=== PATIENT | male | born 1970 | race Caucasian/White ===

== ENCOUNTER 2016-07-19 13:02 | Observation (INO) ==
--- NOTE | 2016-07-19 13:08 | Emergency Department Note ---
Disposition Clinical Impression: Chest pain, Status post coronary artery stent placement, Elevated blood pressure reading Disposition: Admitted As Inpatient Condition: Good General Adult HPI - General Chief complaint: ED Chest Pain Stated complaint: CHEST PAIN Time Seen by Provider: 07/19/16 13:04 - Related Data Home Medications Medication Instructions Recorded Confirmed Alprazolam [Xanax 0.5 MG Tablet] 0.5 mg PO TID 07/19/16 07/19/16 Escitalopram [Lexapro] 10 mg PO DAILY 07/19/16 07/19/16 Previous Rx's Medication Instructions Recorded Aspirin Enteric Coated [Aspirin EC] 81 mg PO DAILY #30 tablet.dr 12/16/15 Atorvastatin Calcium [Lipitor] 80 mg PO HS #30 tab 12/16/15 Clopidogrel [Plavix] 75 mg PO DAILY #30 tablet 12/16/15 Losartan [Cozaar] 25 mg PO DAILY #30 tablet 12/16/15 Metoprolol XL (24 HR) Succ [Toprol 50 mg PO DAILY #30 tab.er.24h 12/16/15 Xl] Allergies Allergy/AdvReac Type Severity Reaction Status Date / Time lisinopril AdvReac Cough Verified 12/16/15 11:40 Past Medical History - Past Medical History Medical history: Reports: hypertension, kidney stones, other Surgical history: Reports: ureteral stent Psychiatric history: Reports: no psych history - Social History Smoking Status: Current every day smoker Smokeless Tobacco Status: No Alcohol use: Reports: none, rarely Drug use: Reports: none Course Vital Signs Temperature 98.0 F 07/19/16 13:06 Pulse Rate 78 07/19/16 13:06 Respiratory Rate 16 07/19/16 13:06 Blood Pressure 180/120 07/19/16 13:06 O2 Sat by Pulse Oximetry 99 07/19/16 13:06 Temperature 98.0 F 07/19/16 13:06 Pulse Rate 75 07/19/16 13:42 Respiratory Rate 15 07/19/16 13:42 Blood Pressure 140/97 07/19/16 13:42 O2 Sat by Pulse Oximetry 97 07/19/16 13:42 Oxygen Delivery Oxygen Delivery Room Air Medical Decision Making - Lab Data Result diagrams: 07/19/16 13:18 07/19/16 13:18 Lab Results 07/19/16 07/19/16 07/19/16 Range/Units 13:18 13:18 13:18 WBC 6.9 (4.3-11.1) K/mcL RBC 4.89 (4.19-5.50) M/mcL Hgb 14.2 (12.9-16.9) g/dL Hct 42.6 (37.5-50.1) % MCV 87.1 (83.0-100.0) fL MCH 29.0 (28.0-33.3) pg MCHC 33.3 (31.6-35.5) g/dL RDW 12.7 (11.5-14.5) % Plt Count 279 (140-400) K/mcL MPV 8.5 L (9.4-12.4) fL Immature Gran % 0.4 (0-4) % Seg Neutrophils % 55.3 % Lymphocytes % 32.2 % Monocytes % 8.8 % Eosinophils % 2.6 % Basophils % 0.7 % Neutrophils # 3.8 (1.6-8.9) K/mcL Lymphocytes # 2.2 (0.6-4.6) K/mcL Monocytes # 0.6 (0.0-1.3) K/mcL Eosinophils # 0.2 (0.0-0.6) K/mcL Basophils # 0.1 (0.0-0.2) K/mcL Sodium 140 (136-145) mEq/L Potassium 4.2 (3.5-4.5) mEq/L Chloride 109 (98-109) mEq/L Carbon Dioxide 23 (19-29) mEq/L BUN 14 (8-26) mg/dL Creatinine 1.26 H (0.72-1.25) mg/dL Est GFR ( Amer) > 60 (> 60) Est GFR (Non-Af Amer) > 60 (> 60) BUN/Creatinine Ratio 11 (6-26) Glucose 97 (70-99) mg/dL Calculated Osmolality 290 (280-300) Calcium 9.2 (8.6-10.8) mg/dL Troponin I 0.00 (0-0.03) ng/mL Attestation Statement - Attestation Attestation: I examined this patient and my medical decision-making was reviewed with the JANITORIAL ASSISTANT/PA/Advanced Practice Nurse/Resident Physician. I agree with the documented findings, disposition and treatment plan as described except to the extent set forth below. [id number] time provided Patient complains of chest discomfort. In December he suffered a myocardial infarction and had one coronary stent deployed. He states the pain is in a different location and is subjectively different than when he had an MRI. He appears in no acute distress on exam. Patient seen and evaluated in conjunction with resident physician Dr. Sullivan
[2016-07-19] MEDS ORDERED: Nitroglycerin 0.4 MG TAB.SUBL SL ONE (13:12)
[2016-07-19] MEDS ORDERED: Aspirin 81 MG TAB.CHEW PO ONE (13:12)
--- NOTE | 2016-07-19 13:15 | Emergency Department Note ---
Disposition Clinical Impression: Status post coronary artery stent placement, Elevated blood pressure reading Chest pain Qualifiers: Chest pain type: unspecified Qualified Code(s): R07.9 - Chest pain, unspecified Disposition: Admitted As Inpatient Condition: Good Chest Pain HPI - General Chief Complaint: ED Chest Pain Stated Complaint: CHEST PAIN Time Seen by Provider: 07/19/16 13:04 Source: patient, family Mode of arrival: wheelchair Limitations: no limitations Vital Signs Reviewed: Yes Nursing Notes Reviewed: Yes - History of Present Illness HPI Narrative: 45-year-old male history of hypertension and coronary artery disease status post 1 stent placed back in December 2015 presents for evaluation of chest pain. Notes it is nonexertional left-sided with radiation as left arm. Notes some nausea and diaphoresis. Slightly different pain presentation than his prior cardiac event. Patient states he has been taking his Plavix. No aspirin prior to arrival. Reports some shortness of breath. Severity scale (1-10): 7 - Related Data Home Medications Medication Instructions Recorded Confirmed Alprazolam [Xanax 0.5 MG Tablet] 0.5 mg PO TID 07/19/16 07/19/16 Escitalopram [Lexapro] 10 mg PO DAILY 07/19/16 07/19/16 Previous Rx's Medication Instructions Recorded Aspirin Enteric Coated [Aspirin EC] 81 mg PO DAILY #30 tablet.dr 12/16/15 Atorvastatin Calcium [Lipitor] 80 mg PO HS #30 tab 12/16/15 Clopidogrel [Plavix] 75 mg PO DAILY #30 tablet 12/16/15 Losartan [Cozaar] 25 mg PO DAILY #30 tablet 12/16/15 Metoprolol XL (24 HR) Succ [Toprol 50 mg PO DAILY #30 tab.er.24h 12/16/15 Xl] Allergies Allergy/AdvReac Type Severity Reaction Status Date / Time lisinopril AdvReac Cough Verified 12/16/15 11:40 All systems ED: reviewed and negative except as stated. Constitutional: Reports: as per HPI. Denies: fever Eyes: Reports: as per HPI ENT ED: Reports: as per HPI Cardiovascular: Reports: as per HPI, chest pain Respiratory: Reports: as per HPI, dyspnea Gastrointestinal: Reports: as per HPI, nausea. Denies: abdominal pain, vomiting Genitourinary: Reports: as per HPI Musculoskeletal: Reports: as per HPI Integumentary: Reports: as per HPI Neurological: Reports: as per HPI Psychiatric: Reports: as per HPI, anxiety Endocrine: Reports: as per HPI Hematological/Lymphatic: Reports: as per HPI Chest Pain PMH - Past Medical History Medical history: Reports: hypertension, kidney stones, other Surgical history: Reports: ureteral stent Psychiatric history: Reports: no psych history - Social History Smoking Status: Current every day smoker Alcohol use: Reports: none, rarely Drug use: Reports: none Physical Exam - General Limitations: no limitations General appearance: alert, in no apparent distress - Head Head exam: atraumatic, normocephalic, normal inspection - Eye Eye exam: Present: normal appearance, PERRL, EOMI - ENT ENT exam: normal exam, mucous membranes moist - Neck Neck exam: Present: normal inspection, trachea midline - Chest Chest inspection: Present: normal inspection, symmetric chest wall rise - Respiratory Respiratory exam: Present: normal lung sounds bilaterally. Absent: respiratory distress - Cardiovascular Cardiovascular exam: Present: regular rate, normal rhythm - Abdominal Exam Abdominal exam: Present: soft, Non-Tender - Extremities Exam Extremities exam: Present: normal inspection, full ROM. Absent: tenderness, pedal edema - Back Exam Back exam: Present: normal inspection, full ROM. Absent: tenderness - Neurological Exam Neurological exam: Present: alert - Psychiatric Psychiatric exam: Present: normal affect, normal mood Course Course Narrative: Patient seen and examined. Patient appears in mild discomfort. Patient has a concerning story with a heart history. Patient will get an EKG, cardiac evaluation. Likely admission. - Reevaluation(s) Reevaluation #1: Patient seen and examined. Patient noted pain relief following interventions. Awaiting lab work. Time: 13:31 Vital Signs Temperature 98.0 F 07/19/16 13:06 Pulse Rate 78 07/19/16 13:06 Respiratory Rate 16 07/19/16 13:06 Blood Pressure 180/120 07/19/16 13:06 O2 Sat by Pulse Oximetry 99 07/19/16 13:06 Temperature 98.0 F 07/19/16 13:06 Pulse Rate 75 07/19/16 13:42 Respiratory Rate 15 07/19/16 13:42 Blood Pressure 140/97 07/19/16 13:42 O2 Sat by Pulse Oximetry 97 07/19/16 13:42 Oxygen Delivery Oxygen Delivery Room Air Chest Pain - [facility] Narrative Medical decision making narrative: 45-year-old male for evaluation of chest pain. Patient does have a cardiac history status post stent back in December of last year. Patient's story was concerning for ACS chest pain nonexertional with radiation as left arm. Patient has been taking his Plavix and aspirin. Patient's pain resolved after one nitroglycerin in the emergency department. Patient's blood pressure also improved from initial triage evaluation. Patient's EKG is unremarkable. Patient's initial troponin is negative. Lab work also unremarkable besides a slightly elevated creatinine. Patient's resting comfortably in the emergency department. Patient will be admitted for further monitoring of chest pain. Patient's chest pain less likely result of any pulmonary embolism. Patient is PERC negative and is not hypoxic or dyspnic with his history more consistent with ACS chest pain. Patient had a nondiagnostic stress test back in December of last year. Patient will need further evaluation for his ACS. Patient is aware of plan of care and agrees. - Lab Data Lab results reviewed: Yes I reviewed the patient's lab results. Result diagrams: 07/19/16 13:18 07/19/16 13:18 Lab Results 07/19/16 07/19/16 07/19/16 Range/Units 13:18 13:18 13:18 WBC 6.9 (4.3-11.1) K/mcL RBC 4.89 (4.19-5.50) M/mcL Hgb 14.2 (12.9-16.9) g/dL Hct 42.6 (37.5-50.1) % MCV 87.1 (83.0-100.0) fL MCH 29.0 (28.0-33.3) pg MCHC 33.3 (31.6-35.5) g/dL RDW 12.7 (11.5-14.5) % Plt Count 279 (140-400) K/mcL MPV 8.5 L (9.4-12.4) fL Immature Gran % 0.4 (0-4) % Seg Neutrophils % 55.3 % Lymphocytes % 32.2 % Monocytes % 8.8 % Eosinophils % 2.6 % Basophils % 0.7 % Neutrophils # 3.8 (1.6-8.9) K/mcL Lymphocytes # 2.2 (0.6-4.6) K/mcL Monocytes # 0.6 (0.0-1.3) K/mcL Eosinophils # 0.2 (0.0-0.6) K/mcL Basophils # 0.1 (0.0-0.2) K/mcL Sodium 140 (136-145) mEq/L Potassium 4.2 (3.5-4.5) mEq/L Chloride 109 (98-109) mEq/L Carbon Dioxide 23 (19-29) mEq/L BUN 14 (8-26) mg/dL Creatinine 1.26 H (0.72-1.25) mg/dL Est GFR ( Amer) > 60 (> 60) Est GFR (Non-Af Amer) > 60 (> 60) BUN/Creatinine Ratio 11 (6-26) Glucose 97 (70-99) mg/dL Calculated Osmolality 290 (280-300) Calcium 9.2 (8.6-10.8) mg/dL Troponin I 0.00 (0-0.03) ng/mL - Radiology Data Radiology results reviewed: Yes I reviewed the patient's radiology results. Chest X-Ray 07/19/16 13:12 IMPRESSION: Stable portable study. D/ / Lisette Moreland Cha, MD / Lisette Moreland Cha, MD Interpreting Provider: Lisette Moreland Cha, MD - EKG Data EKG attestation: Yes I reviewed and interpreted this EKG. EKG shows normal: sinus rhythm Rate: normal Rhythm: NSR [place]/QRS: normal Interpretation: no acute changes, normal EKG Heart Score - Score History: Highly Suspicious EKG: Normal Age: 45-65 Risk Factors: 1-2 risk factors Troponin: Less than normal limit HEART Score Total: 4 S.B.A.R. - S.B.A.R. Situation: Demographics Background: Presenting Complaint, Relevant PMH, Meds, & Allergies Assessment: Vital Signs, Course and respsone to treatment, Patient/Family Expectation Recommendation: Barrier(s) to disposition, Recommendation based on pending studies, treatments, or consults S.B.A.RDeloris Report Given to: Dr. Jade MurphyADavid Repor Time: 14:03
[2016-07-19] MEDS ORDERED: Aspirin 81 MG TAB.CHEW ONE (13:22)
[2016-07-19 13:25] LABS: Basophils # 0.1 K/mcL (0.0-0.2); Basophils % 0.7 %; Eosinophils # 0.2 K/mcL (0.0-0.6); Eosinophils % 2.6 %; Hematocrit 42.6 % (37.5-50.1); Hemoglobin 14.2 g/dL (12.9-16.9); Immature Granulocytes % 0.4 % (0-4); Lymphocytes # 2.2 K/mcL (0.6-4.6); Lymphocytes % 32.2 %; Mean Corpuscular HGB Conc 33.3 g/dL (31.6-35.5); Mean Corpuscular Volume 87.1 fL (83.0-100.0); Mean Platelet Volume 8.5 fL (9.4-12.4); Monocytes # 0.6 K/mcL (0.0-1.3); Monocytes % 8.8 %; Neutrophils # 3.8 K/mcL (1.6-8.9); Platelet Count 279 K/mcL (140-400); Red Blood Count 4.89 M/mcL (4.19-5.50); Red Cell Distribution Width 12.7 % (11.5-14.5); Segmented Neutrophils % 55.3 %
[2016-07-19 13:36] LABS: BUN/Creatinine Ratio 11 (6-26); Blood Urea Nitrogen 14 mg/dL (8-26); Calcium 9.2 mg/dL (8.6-10.8); Carbon Dioxide 23 mEq/L (19-29); Chloride 109 mEq/L (98-109); Glucose 97 mg/dL (70-99); Osmolality,Calculated 290 (280-300); Potassium 4.2 mEq/L (3.5-4.5); Sodium 140 mEq/L (136-145); eGFR For African Americans > 60 (> 60); eGFR For Non-African Americans > 60 (> 60)
--- NOTE | 2016-07-19 14:18 | Internal Med History&Physical ---
Date of Encounter: 07/19/16 Time of Encounter: 14:17 Assessment and Plan (1) Chest pain Current visit: Yes Status: Acute typical chest pain with left sided pressure sensation radiating to his left arm relieved with nitro EKG and first trop is negative, will trend tropx3, monitor for chest pain, continuous cardiac monitoring, nitro prn for chest pain. Patient had a [facility] 12/14/15 with findings of 90% LAD obstruction with placement of a NOEMY. ECHO was done which revealed normal EF with mild KEMAL of MV, no LVOT observed. given significnat cardiac history and typical chest pain, he may need a stress test. consult cardio if stress test results concerning for ischemia. 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 (3) Hyperlipidemia Current visit: No Status: Acute Qualifiers: Hyperlipidemia type: mixed hyperlipidemia Qualified Code(s): E78.2 - Mixed hyperlipidemia (4) Hypertension Current visit: No Status: Chronic BP elevated at ED at 180/120s. however when he came to floors, was 130/80s. he did not get any meds at ED for BP. will cotninue home meds, continue to monitor Qualifiers: Hypertension type: essential hypertension Qualified Code(s): I10 - Essential (primary) hypertension (5) Tobacco use Current visit: No Status: Chronic (6) Status post coronary artery stent placement Current visit: Yes Status: Acute contiue DAPT. Patient had a [facility] 12/14/15 with findings of 90% LAD obstruction with placement of a NOEMY with Dr. Romano. Internal Medicine - H&P: HPI Chief complaint: chest pain Admitted From: Home Plans for Post Hospital Care: Home History of present illness: Mr. Aguilar is a 45 year old male with PMH of HTN, Obesity, Active smoker, WPW Syndrome s/p ablation in 2006 at [facility] presented to ED for chest pain. he says the chest pain started around 11 am in the morning, felt pressure like , radiating to his left arm which felt numb. he was given nitro at ED which he says helped ease the chest pain. he denies n/v/diaphoresis. Patient had a [facility] 12/14/15 with findings of 90% LAD obstruction with placement of a NOEMY. ECHO was done which revealed normal EF with mild KEMAL of MV, no LVOT observed. he has not followed with a secondary english teacher after the stent placement and had no chest pain or MAK since the stent placement. he reports that his mother recently and thus he started smoking again. Past Med Surg Social Fam HX - Past Medical History Medical history: hypertension, kidney stones, other Psychiatric history: no psych history - Past Surgical History Surgical History: ureteral stent - Social History Smoking Status: Current every day smoker Smokeless Tobacco Status: No Alcohol use: none, rarely Drug use: none - Family History Father Family Member Ethnicity: Non- Living Status: Still Living Hx Family Cardiac Disorders: No Hx Family Respiratory Disorders: No Hx Family Cancer: No Hx Family GI Disorders: No Hx Family Endocrine Disorder: Yes (Diabetes) Hx Family Neuromuscular Disorders: No Hx Family Neurologic Disorders: No Hx Family HEENT Disorders: No Hx Family Autoimmune Disorders: No Internal Medicine - H&P: Meds Aspirin Enteric Coated [Aspirin EC] 81 mg PO DAILY #30 tablet.dr 12/16/15 [Rx] Atorvastatin Calcium [Lipitor] 80 mg PO HS #30 tab 12/16/15 [Rx] Clopidogrel [Plavix] 75 mg PO DAILY #30 tablet 12/16/15 [Rx] Losartan [Cozaar] 25 mg PO DAILY #30 tablet 12/16/15 [Rx] Metoprolol XL (24 HR) Succ [Toprol Xl] 50 mg PO DAILY #30 tab.er.24h 12/16/15 [ Rx] Alprazolam [Xanax 0.5 MG Tablet] 0.5 mg PO TID PRN 07/19/16 [History] Escitalopram [Lexapro] 10 mg PO DAILY 07/19/16 [History] Allergies lisinopril Adverse Reaction (Verified 12/16/15 11:40) Cough All Systems PM: A 10-system review of systems was performed and is negative for pertinent findings except as documented above in the HPI. - Constitutional Vitals: Temp Pulse Resp BP Pulse Ox 98.0 F 75 15 140/97 97 07/19/16 13:06 07/19/16 13:42 07/19/16 13:42 07/19/16 13:42 04/14/17 13:42 General appearance: Present: A&O X 3, no acute distress Exam: neck- supple chest- b/l clear, marj dded sounds CVS-s1 and s2, no m/r/g abd-soft, non tender, bs are present ext- no edema Internal Med - H&P Results - Labs CBC & Chem 7: 07/19/16 13:18 07/19/16 13:18
[2016-07-19] MEDS ORDERED: Naloxone 0.4 MG/ML INJ IVP PRN (15:06)
[2016-07-19] MEDS ORDERED: ALPRAZolam 0.5 MG TABLET PO PRN (15:08)
[2016-07-19] MEDS: *HR* Enoxaparin 40 MG/0.4 ML SYRINGE SQ SCH (16:44)
--- NOTE | 2016-07-19 20:56 | Electrocardiograph Report ---
[address] [address] Test Date: 2016-07-19 Pat Name: Jluis Aguilar Department: 102 Room: 3B46 Gender: M Vice Chancellor: [place] : 1970 Requested By: Willie Sullivan Order Number: [id number] Reading MD: Misael Levine MD Measurements Intervals [place] Rate: 76 P: 51 TX: 173 QRS: -5 QRSD: 78 T: 30 QT: 356 QTc: 386 Interpretive Statements SINUS RHYTHM Electronically Signed On 07-19-2016 20:54:50 EDT by Misael Levine MD
[2016-07-20 00:27] LABS: Basophils # 0.1 K/mcL (0.0-0.2); Basophils % 0.7 %; Eosinophils # 0.3 K/mcL (0.0-0.6); Eosinophils % 3.3 %; Hematocrit 40.7 % (37.5-50.1); Hemoglobin 13.6 g/dL (12.9-16.9); Immature Granulocytes % 0.7 % (0-4); Immature Platelets 1.5 % (1.1-6.1); Lymphocytes # 3.7 K/mcL (0.6-4.6); Lymphocytes % 47.9 %; Mean Corpuscular HGB Conc 33.4 g/dL (31.6-35.5); Mean Corpuscular Hemoglobin 29.6 pg (28.0-33.3); Mean Corpuscular Volume 88.7 fL (83.0-100.0); Mean Platelet Volume 8.9 fL (9.4-12.4); Monocytes # 0.7 K/mcL (0.0-1.3); Monocytes % 8.6 %; Platelet Count 297 K/mcL (140-400); Red Blood Count 4.59 M/mcL (4.19-5.50); Red Cell Distribution Width 12.8 % (11.5-14.5); Segmented Neutrophils % 38.8 %
[2016-07-20 00:39] LABS: BUN/Creatinine Ratio 11 (6-26); Blood Urea Nitrogen 17 mg/dL (8-26); Calcium 8.4 mg/dL (8.6-10.8); Carbon Dioxide 28 mEq/L (19-29); Chloride 108 mEq/L (98-109); Glucose 95 mg/dL (70-99); Osmolality,Calculated 297 (280-300); Potassium 3.8 mEq/L (3.5-4.5); Sodium 143 mEq/L (136-145); eGFR For African Americans > 60 (> 60); eGFR For Non-African Americans 51 (> 60)
[2016-07-20] MEDS: *HR* Enoxaparin 40 MG/0.4 ML SYRINGE SQ SCH (05:04)
[2016-07-20] MEDS ORDERED: Regadenoson 0.4 MG/5 ML SYRINGE IVP ONE (07:09)
[2016-07-20] MEDS ORDERED: Metoprolol XL (24 HR) Succ 50 MG TAB.ER.24H PO SCH (09:00)
[2016-07-20] MEDS ORDERED: Aspirin Enteric Coated 81 MG Tablet PO SCH (09:00)
[2016-07-20 11:06] VITALS: BP 145/93
--- NOTE | 2016-07-20 11:32 | Nuclear Medicine Stress Report ---
Regadenoson Nuclear Stress Name: Jluis Aguilar Date of Study: 07/20/2016 Date: 1970 Ht: 72.0 in Medical Record#: [id number] Age: 45 Wt: 264.0 lb Gender: Male Order #: [id number] Location: [facility] Room: [facility] Supervising Provider: Daniel Hart CNP Reading Physician: Haroldo Gupta MD, [facility] Ordering Physician: Tata Evans CNP Primary Care Physician: Diomedes Best DO Stress Technologist: Mario Pepper, RADIAL SAW OPERATOR, CCT Delinquent Account Clerk: Meir Gonsalez Indications: Chest Pain Impression: Non-specific ST-T wave changes were seen with regadenoson. No ECG changes diagnostic of ischemia. Gated LVEF = 68%. Perfusion imaging was negative for ischemia or infarct. History: Hypertension Hypercholesteremia History of Smoking Prior PCI Stress Test Summary: Stress Test Type: Pharmacologic Regadenoson 0.4mg/5ml given IV Baseline Information: Initial Heart Rate: 58 Blood Pressure: 136/90 Stress Information: Test Terminated Due to (primary): Completed Protocol Maximum Blood Pressure: 136/80 Maximum Heart Rate: 100 Percent Maximum Heart Rate Achieved: 57 Double Product: 13,600 Symptoms: Shortness of breath, Nausea Nuclear Summary: SPECT myocardial perfusion imaging using Tc99m Sestamibi given intravenously was performed at rest and following cardiac stress testing. The resting images were obtained following initial dose of 11.0 mCi. Following stress an additional dose of 33.1 mCi was given at peak exercise or 30 seconds post regadenoson infusion. Findings: Stress Note * Resting ECG demonstrated sinus bradycardia. * No baseline arrhythmias were noted. * Patient had no chest pain during stress. * No arrhythmias were noted during stress. * Non-specific ST-T wave changes were seen with regadenoson. No ECG changes diagnostic of ischemia. Hemodynamic responses * Normal hemodynamic responses to pharmacologic stress. Study Quality * Study quality is average. Gated EF % * Gated LVEF = 68%. Left Ventricle * The left ventricle is not dilated. * Normal Segmental Perfusion in rest. * Normal segmental perfusion in stress. * Inferior artifact noted. TID * No evidence of transient ischemic dilatation. Updated by Haroldo Gupta MD, [facility] on 07/20/2016 11:26:48 AM electronically signed on 07/20/2016 11:27:10 AM with status of Final
--- NOTE | 2016-07-20 13:02 | Discharge Summary ---
Date of Encounter: 07/20/16 Time of Encounter: 10:00 - Discharge Diagnosis (1) Chest pain Priority: Primary Status: Acute Comments: Patient reports sudden onset chest pain yesterday morning at work while he was walking to a job site. He says the pain began radiating down both arms clear to his fingers. He was profusely diaphoretic, dizzy, and short of breath. He says this is different than the symptoms he had with his ND. He says his shoulders and neck were extremely stiff. The pain was relieved with nitroglycerin in the emergency department. His troponins were negative 3. Chest x-ray was negative for any acute cardiopulmonary processes. Patient had a left heart catheter done in December 2015 the discover an 80% LAD obstruction with placement of a TENS at that time. Echo was done which revealed normal EF with mild S a.m. of MV, no LVOT observed. Stress test today showed no arrhythmias, nonspecific ST changes with the medication, no EKG changes diagnostic of ischemia. Gated EF is 68%. Left ventricle is not dilated and no evidence of transient ischemic dilatation. Patient will continue his statin Plavix and beta gonsalo at home. 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 He has had no episodes since. (3) Hyperlipidemia Priority: Secondary Status: Acute Comments: Chronic. Continue statin. Qualifiers: Hyperlipidemia type: mixed hyperlipidemia Qualified Code(s): E78.2 - Mixed hyperlipidemia (4) Hypertension Priority: Secondary Status: Chronic Comments: Chronic. Continue home medications. Qualifiers: Hypertension type: essential hypertension Qualified Code(s): I10 - Essential (primary) hypertension (5) Tobacco use Priority: Secondary Status: Chronic Comments: Attempt discuss smoking cessation with patient. He stopped me midsentence and told me that he is done smoking and said "I do not need patches gone this medications. I am done" (6) Status post coronary artery stent placement Priority: Secondary Status: Chronic Comments: Patient had left heart catheter done in December,. It revealed 90% LAD obstruction and a NOEMY was placed. He is also on Plavix. - Discharge Medications Home Medications: Aspirin Enteric Coated [Aspirin EC] 81 mg PO DAILY #30 tablet. 12/16/15 [Rx] Atorvastatin Calcium [Lipitor] 80 mg PO HS #30 tab 12/16/15 [Rx] Clopidogrel [Plavix] 75 mg PO DAILY #30 tablet 12/16/15 [Rx] Losartan [Cozaar] 25 mg PO DAILY #30 tablet 12/16/15 [Rx] Metoprolol XL (24 HR) Succ [Toprol Xl] 50 mg PO DAILY #30 tab.er.24h 12/16/15 [ Rx] Alprazolam [Xanax 0.5 MG Tablet] 0.5 mg PO TID PRN 07/19/16 [History] Escitalopram [Lexapro] 10 mg PO DAILY 07/19/16 [History] Allergies/Adverse Reactions: Allergies lisinopril Adverse Reaction (Verified 12/16/15 11:40) Cough Procedures/tests Complete & Pending: Procedures Performed prior 72 hours Category Date Time Status NM consuelo perf SPECT multi [NM] Routine Exams 07/19/16 15:10 Taken SP pharm nuclear stress Routine Y 07/19/16 15:09 Completed Date of admission: 07/19/16 14:11 Primary care physician: Diomedes Best DO Discharging clinician: Tata Evans Anticipated date of discharge: 07/20/16 - Patient Status Disposition: Home, Self-Care Condition: Good Functional capacity at discharge: independent ambulation Overall status at discharge: patient is back to baseline - Discharge Instructions Follow Up With: Diomedes Best DO [Primary Care Provider] - Additional Instructions: Continue your home medications. Follow up with your PCP in the next week for a follow up. Return to the ED for any problems, concerns, or worsening condition - Diet and Activity Activity: resume usual activities as tolerated Diet: advance to your usual diet Hospital course: Mr. Aguilar is a 45 year old male with a history of prior ND, stent placement, hyperlipidemia, hypertension, and ablation for WPW. Patient began having chest pain yesterday at work while he was walking to a job site. He said after walking back to his work truck, the pain was radiating down his arms into his fingers. He reported diaphoresis, dizziness, and shortness of breath. He also ports shoulders and neck stiffness, all the symptoms were different than the symptoms he had with his ND. The pain was relieved with nitroglycerin in the emergency department. The patient had a stress test this morning that showed non-specific ST changes were seen when the medication was given. No EKG changes diagnostic of ischemia. Gated LVEF 68%. Left ventricle is not dilated, normal segmental perfusion in rest and stress. No evidence of transient ischemic dilatation. Patient reports hand swelling today when I assessed him. I walked over to him and pulled his wedding band off his left hand easily. He said maybe they are just stiff. Patient is aware of his renal insufficiency and has been treated for it before. His denies any knowledge of this diagnosis. He says he will continue to drink fluids today to flush contrast from his kidneys. He will follow up with his primary care physician, he does not see nephrology. He does have kidney stones currently and is under the care of urology. He is stable for discharge. - Time Spent with Patient Total time spent providing and/or coordinating discharge services: - Constitutional Vitals: Temp Pulse Resp BP Pulse Ox 98.0 F 69 16 145/93 93 07/20/16 11:06 07/20/16 11:06 07/20/16 11:06 07/20/16 11:06 07/20/16 11:06 General appearance: Present: A&O X 3, no acute distress, answers questions appropriately - Head Head exam: Present: normal inspection - Eye Eye exam: Present: normal appearance - ENT ENT exam: Present: mucous membranes moist, normal exam - Neck Neck exam general surgery: Present: normal inspection. Absent: lymphadenopathy , tenderness - Respiratory Respiratory exam: Present: CTAB. Absent: respiratory distress, rhonchi, wheezes - Cardiovascular Cardiovascular exam: Present: RRR, +S1, +S2. Absent: diastolic murmur, systolic murmur - GI/Abdominal GI/Abdominal exam: Present: normal bowel sounds. Absent: hepatomegaly, splenomegaly, tenderness - Extremities Exam Extremities exam: Present: warm, radial pulses palpable and symetrical. Absent : pedal edema, tenderness
== END 2016-07-20 13:37 | disposition home or self-care (01) ==
LOC: EMEROO 13:02 → 3BNU 13:02
PROVIDERS: ADMIT Internal Medicine Endocrinology, Diabetes & Metabolism; ATTEND Registered Nurse

== ENCOUNTER 2019-04-16 13:42 | Observation (INO) ==
[2019-04-16] MEDS ORDERED: Aspirin 81 MG TAB.CHEW PO ONE (13:49)
[2019-04-16] MEDS ORDERED: Nitroglycerin 0.4 MG TAB.SUBL SL PRN (13:49)
[2019-04-16] MEDS ORDERED: *HR* LORazepam 2 MG/ML VIAL IVP ONE (14:07)
[2019-04-16 14:44] LABS: Basophils # 0.1 K/mcL (0.0-0.2); Eosinophils # 0.1 K/mcL (0.0-0.6); Eosinophils % 1.8 %; Hematocrit 45.5 % (37.5-50.1); Hemoglobin 15.3 g/dL (12.9-16.9); Immature Granulocytes % 0.8 % (0-4); Lymphocytes # 2.6 K/mcL (0.6-4.6); Mean Corpuscular HGB Conc 33.6 g/dL (31.6-35.5); Mean Corpuscular Hemoglobin 29.9 pg (28.0-33.3); Mean Corpuscular Volume 88.9 fL (83.0-100.0); Monocytes # 0.5 K/mcL (0.0-1.3); Neutrophils # 3.9 K/mcL (1.6-8.9); Platelet Count 309 K/mcL (140-400); Red Blood Count 5.12 M/mcL (4.19-5.50); Red Cell Distribution Width 12.7 % (11.5-14.5); Segmented Neutrophils % 53.4 %; White Blood Count 7.3 K/mcL (4.3-11.1)
[2019-04-16 14:52] LABS: INR 0.9; Prothrombin Time 10.3 Seconds (9.4-12.1)
[2019-04-16 14:55] LABS: Activated Partial Thrombo Time 31.8 Seconds (26.0-36.0)
[2019-04-16 15:12] LABS: BUN/Creatinine Ratio 20 (6-26); Blood Urea Nitrogen 15 mg/dL (6-20); Calcium 6.5 mg/dL (8.6-10.3); Carbon Dioxide 18 mEq/L (23-29); Chloride 114 mEq/L (98-107); Glucose 70 mg/dL (70-105); Osmolality,Calculated 295 (280-300); Potassium 2.9 mEq/L (3.5-5.1); Sodium 143 mEq/L (136-145); Troponin I < 0.03 ng/mL (< 0.04); eGFR For African Americans > 60 (> 60); eGFR For Non-African Americans > 60 (> 60)
[2019-04-16] MEDS ORDERED: Potassium Effervescent 25 MEQ TABLET.EFF PO ONE (15:14)
[2019-04-16] MEDS ORDERED: Acetaminophen 325 MG TABLET PO PRN (15:34)
[2019-04-16] MEDS ORDERED: Ondansetron 4 MG/2 ML VIAL IVP PRN (15:34)
[2019-04-16] MEDS ORDERED: clonazePAM 0.5 MG TABLET PO PRN (15:36)
[2019-04-16] MEDS ORDERED: Nicotine 14 MG PATCH.TD24 TD PRN (15:38)
[2019-04-16] MEDS ORDERED: Nicotine 2 MG GUM BC PRN (15:38)
[2019-04-16 16:02] LABS: Alanine Aminotransferase 17 Units/L (7-52); Albumin/Globulin Ratio 1.9 (1.1-2.2); Alkaline Phosphatase 35 Units/L (34-104); Aspartate Amino Transferase 12 Units/L (13-39); Bilirubin,Direct 0.1 mg/dL (0.0-0.2); Bilirubin,Indirect 0.2 mg/dL (0.0-1.0); Bilirubin,Total 0.3 mg/dL (0.3-1.0); Globulin 1.6 g/dL (2.4-3.5); Magnesium 1.3 mg/dL (1.6-2.6); Phosphorous 2.6 mg/dL (2.7-4.5); Total Protein 4.6 g/dL (6.4-8.9)
[2019-04-16 16:29] LABS: Bilirubin,Urine Negative (Negative); Blood,Urine Negative (Negative); Clarity,Urine Clear (Clear); Color,Urine Yellow (Yellow); Glucose,Urine (UA) Normal (Normal); Ketones,Urine Negative (Negative); Leukocyte Esterase,Urine Negative (Negative); Nitrite,Urine Negative (Negative); Protein,Urine Negative (Neg-Trace); Specific Gravity,Urine 1.024 (1.010-1.025); Urobilinogen,Urine Normal (Normal)
[2019-04-16 16:58] LABS: Chloride,Urine < 15 mEq/L; Creatinine,Urine < 1 mg/dL; Potassium,Urine < 2.0 mEq/L; Sodium, Urine < 10.0 mEq/L
[2019-04-16] MEDS: carvediloL 6.25 MG TABLET PO SCH (18:18)
[2019-04-16] MEDS: Calcium Gluconate 1gm/50mL 1 GM/50 ML BAG IVPB SCH ×4 (19:56→23:59)
[2019-04-17 07:02] LABS: Hematocrit 45.4 % (37.5-50.1); Hemoglobin 14.9 g/dL (12.9-16.9); Mean Corpuscular HGB Conc 32.8 g/dL (31.6-35.5); Mean Corpuscular Volume 91.5 fL (83.0-100.0); Platelet Count 288 K/mcL (140-400); Red Blood Count 4.96 M/mcL (4.19-5.50); Red Cell Distribution Width 12.9 % (11.5-14.5); White Blood Count 7.4 K/mcL (4.3-11.1)
[2019-04-17 07:28] LABS: BUN/Creatinine Ratio 16 (6-26); Blood Urea Nitrogen 17 mg/dL (6-20); Carbon Dioxide 23 mEq/L (23-29); Chloride 107 mEq/L (98-107); Glucose 112 mg/dL (70-105); Osmolality,Calculated 290 (280-300); Phosphorous 4.4 mg/dL (2.7-4.5); Potassium 4.3 mEq/L (3.5-5.1); Sodium 139 mEq/L (136-145); Troponin I < 0.03 ng/mL (< 0.04); eGFR For African Americans > 60 (> 60); eGFR For Non-African Americans > 60 (> 60)
[2019-04-17] MEDS ORDERED: Regadenoson 0.4 MG/5 ML SYRINGE IVP ONE ×2 (08:25→08:44)
[2019-04-17] MEDS: carvediloL 6.25 MG TABLET PO SCH (11:04)
[2019-04-17 11:25] VITALS: BP 126/88
== END 2019-04-17 14:52 | disposition home or self-care (01) ==
LOC: EMEROOARM 13:42 → 3BNU 13:42 → SUATTDRO 17:20 → 3BNU 18:32
PROVIDERS: ADMIT Internal Medicine; ATTEND Internal Medicine

== ENCOUNTER 2020-07-10 21:33 | Observation (INO) ==
[2020-07-10] MEDS ORDERED: Aspirin 81 MG TAB.CHEW PO ONE (21:57)
[2020-07-10 22:30] LABS: Basophils # 0.1 K/mcL (0.0-0.2); Eosinophils # 0.3 K/mcL (0.0-0.6); Hematocrit 45.5 % (37.5-50.1); Hemoglobin 14.6 g/dL (12.9-16.9); Immature Granulocytes % 0.6 % (0-4); Lymphocytes # 2.9 K/mcL (0.6-4.6); Lymphocytes % 34.7 %; Mean Corpuscular HGB Conc 32.1 g/dL (31.6-35.5); Mean Corpuscular Hemoglobin 28.9 pg (28.0-33.3); Mean Corpuscular Volume 89.9 fL (83.0-100.0); Mean Platelet Volume 8.8 fL (9.4-12.4); Monocytes # 0.7 K/mcL (0.0-1.3); Monocytes % 7.8 %; Neutrophils # 4.4 K/mcL (1.6-8.9); Platelet Count 310 K/mcL (140-400); Red Blood Count 5.06 M/mcL (4.19-5.50); Red Cell Distribution Width 13.5 % (11.5-14.5); Segmented Neutrophils % 52.9 %; White Blood Count 8.3 K/mcL (4.3-11.1)
[2020-07-10 22:52] LABS: BUN/Creatinine Ratio 17 (6-26); Blood Urea Nitrogen 22 mg/dL (6-20); Calcium 9.1 mg/dL (8.6-10.3); Carbon Dioxide 23 mEq/L (23-29); Chloride 107 mEq/L (98-107); Glucose 121 mg/dL (70-105); Osmolality,Calculated 295 (280-300); Potassium 3.6 mEq/L (3.5-5.1); Sodium 140 mEq/L (136-145); eGFR For African Americans > 60 (> 60); eGFR For Non-African Americans > 60 (> 60)
[2020-07-10 22:53] LABS: Troponin I < 0.03 ng/mL (< 0.04)
[2020-07-11] MEDS ORDERED: Nitroglycerin 0.4 MG TAB.SUBL SL PRN (01:01)
[2020-07-11] MEDS ORDERED: Naloxone 0.4 MG/ML INJ IVP PRN (01:07)
[2020-07-11] MEDS ORDERED: Perflutren Lipid Microsphere 1.3 ML in 0.9 % Sodium Chloride 8.7 ML IVP PRN (01:07)
[2020-07-11] MEDS ORDERED: Melatonin 3 MG TABLET PO PRN (01:07)
[2020-07-11] MEDS ORDERED: Ondansetron 4 MG/2 ML VIAL IVP PRN (01:07)
[2020-07-11] MEDS ORDERED: Acetaminophen 325 MG TABLET PO PRN (01:07)
[2020-07-11] MEDS ORDERED: clonazePAM 0.5 MG TABLET PO PRN (05:38)
[2020-07-11] MEDS ORDERED: Regadenoson 0.4 MG/5 ML SYRINGE IVP ONE (06:05)
[2020-07-11 08:28] LABS: Chol/HDL Ratio 7.4 (0-4.9); Cholesterol 170 mg/dL (< 200); HDL Cholesterol 23 mg/dL (40-59); LDL Cholesterol,Calculated 109 mg/dL (< 100); Triglycerides 189 mg/dL (< 150); Troponin I < 0.03 ng/mL (< 0.04)
[2020-07-11 12:13] LABS: Hematocrit 44.6 % (37.5-50.1); Hemoglobin 14.8 g/dL (12.9-16.9); Mean Corpuscular HGB Conc 33.2 g/dL (31.6-35.5); Mean Corpuscular Hemoglobin 29.8 pg (28.0-33.3); Mean Corpuscular Volume 89.9 fL (83.0-100.0); Mean Platelet Volume 8.7 fL (9.4-12.4); Platelet Count 276 K/mcL (140-400); Red Blood Count 4.96 M/mcL (4.19-5.50); Red Cell Distribution Width 13.4 % (11.5-14.5); White Blood Count 5.8 K/mcL (4.3-11.1)
[2020-07-11 12:22] LABS: BUN/Creatinine Ratio 17 (6-26); Blood Urea Nitrogen 18 mg/dL (6-20); Calcium 8.7 mg/dL (8.6-10.3); Carbon Dioxide 24 mEq/L (23-29); Chloride 109 mEq/L (98-107); Glucose 102 mg/dL (70-105); Magnesium 2.1 mg/dL (1.6-2.6); Osmolality,Calculated 290 (280-300); Phosphorous 3.6 mg/dL (2.7-4.5); Sodium 139 mEq/L (136-145); eGFR For African Americans > 60 (> 60); eGFR For Non-African Americans > 60 (> 60)
[2020-07-11 14:22] LABS: Bilirubin,Urine Negative (Negative); Blood,Urine Negative (Negative); Clarity,Urine Clear (Clear); Color,Urine Light-Yellow (Yellow); Glucose,Urine (UA) Normal (Normal); Ketones,Urine Negative (Negative); Leukocyte Esterase,Urine Negative (Negative); Nitrite,Urine Negative (Negative); PH,Urine 5.5 pH Units (5.0-8.0); Protein,Urine Negative (Neg-Trace); Specific Gravity,Urine 1.027 (1.010-1.025); Urobilinogen,Urine Normal (Normal)
[2020-07-12 02:18] LABS: Hemoglobin 14.5 g/dL (12.9-16.9); Mean Corpuscular Hemoglobin 29.3 pg (28.0-33.3); Mean Corpuscular Volume 88.9 fL (83.0-100.0); Mean Platelet Volume 8.9 fL (9.4-12.4); Platelet Count 274 K/mcL (140-400); Red Blood Count 4.95 M/mcL (4.19-5.50); Red Cell Distribution Width 13.3 % (11.5-14.5); White Blood Count 7.5 K/mcL (4.3-11.1)
[2020-07-12 02:34] LABS: BUN/Creatinine Ratio 20 (6-26); Blood Urea Nitrogen 19 mg/dL (6-20); Calcium 8.8 mg/dL (8.6-10.3); Carbon Dioxide 22 mEq/L (23-29); Chloride 107 mEq/L (98-107); Glucose 94 mg/dL (70-105); Osmolality,Calculated 288 (280-300); Phosphorous 4.2 mg/dL (2.7-4.5); Potassium 3.9 mEq/L (3.5-5.1); Sodium 138 mEq/L (136-145); eGFR For African Americans > 60 (> 60); eGFR For Non-African Americans > 60 (> 60)
[2020-07-12 11:39] VITALS: BP 143/88
== END 2020-07-12 11:50 | disposition home or self-care (01) ==
LOC: CDU 21:33 → EMEROOARM 21:33 → SUATTDRO 07-11 01:26 → CDU 07-11 01:38 → 3BNU 07-11 16:21
PROVIDERS: ADMIT Family Medicine; ATTEND Nurse Practitioner

== ENCOUNTER 2021-10-19 16:40 | Observation (INO) ==
[2021-10-19 17:30] LABS: Basophils # 0.1 K/mcL (0.0-0.2); Basophils % 0.9 %; Eosinophils # 0.2 K/mcL (0.0-0.6); Eosinophils % 1.8 %; Hematocrit 48.3 % (37.5-50.1); Hemoglobin 16.2 g/dL (12.9-16.9); Immature Granulocytes % 0.5 % (0-4); Lymphocytes # 2.4 K/mcL (0.6-4.6); Lymphocytes % 29.8 %; Mean Corpuscular HGB Conc 33.5 g/dL (31.6-35.5); Mean Corpuscular Hemoglobin 29.6 pg (28.0-33.3); Mean Corpuscular Volume 88.1 fL (83.0-100.0); Mean Platelet Volume 9.3 fL (9.4-12.4); Monocytes # 0.5 K/mcL (0.0-1.3); Monocytes % 5.7 %; Platelet Count 328 K/mcL (140-400); Red Blood Count 5.48 M/mcL (4.19-5.50); Red Cell Distribution Width 13.2 % (11.5-14.5); Segmented Neutrophils % 61.3 %; White Blood Count 8.2 K/mcL (4.3-11.1)
[2021-10-19 17:37] LABS: INR 0.9; Prothrombin Time 10.2 Seconds (9.4-12.1)
[2021-10-19 17:39] LABS: Activated Partial Thrombo Time 34.7 Seconds (26.0-36.0)
[2021-10-19 17:50] LABS: BUN/Creatinine Ratio 10 (6-26); Blood Urea Nitrogen 11 mg/dL (6-20); Calcium 8.7 mg/dL (8.6-10.3); Carbon Dioxide 27 mEq/L (23-29); Chloride 105 mEq/L (98-107); Glucose 107 mg/dL (70-105); Osmolality,Calculated 290 (280-300); Potassium 3.8 mEq/L (3.5-5.1); Sodium 140 mEq/L (136-145); Troponin I < 0.03 ng/mL (< 0.04); eGFR For African Americans > 60 (> 60); eGFR For Non-African Americans > 60 (> 60)
[2021-10-19] MEDS: Nitroglycerin 0.4 MG TAB.SUBL SL SCH ×2 (17:52→19:26)
[2021-10-19] MEDS ORDERED: clonazePAM 1 MG TABLET PO PRN (19:31)
[2021-10-19] MEDS ORDERED: Perflutren Lipid Microsphere 1.3 ML in 0.9 % Sodium Chloride 8.7 ML IVP PRN (21:05)
[2021-10-19] MEDS ORDERED: Nitroglycerin 0.4 MG TAB.SUBL SL PRN (21:08)
[2021-10-19] MEDS ORDERED: Morphine Sulfate 2 MG/ML SYRINGE IVP PRN (21:08)
[2021-10-19] MEDS ORDERED: Naloxone 0.4 MG/ML INJ IVP PRN (21:35)
[2021-10-19] MEDS: Famotidine 20 MG TABLET PO SCH (21:37)
[2021-10-20] MEDS: *HR* Heparin 5,000 UNIT/ML VIAL SQ SCH ×3 (05:24→21:34)
[2021-10-20 05:28] LABS: Hematocrit 46.9 % (37.5-50.1); Hemoglobin 15.5 g/dL (12.9-16.9); Mean Corpuscular Hemoglobin 29.5 pg (28.0-33.3); Mean Corpuscular Volume 89.3 fL (83.0-100.0); Mean Platelet Volume 9.3 fL (9.4-12.4); Platelet Count 310 K/mcL (140-400); Red Blood Count 5.25 M/mcL (4.19-5.50); Red Cell Distribution Width 13.1 % (11.5-14.5); White Blood Count 8.1 K/mcL (4.3-11.1)
[2021-10-20 06:18] LABS: BUN/Creatinine Ratio 11 (6-26); Blood Urea Nitrogen 13 mg/dL (6-20); Calcium 8.4 mg/dL (8.6-10.3); Carbon Dioxide 26 mEq/L (23-29); Chloride 106 mEq/L (98-107); Chol/HDL Ratio 4.1 (0-4.9); Cholesterol 132 mg/dL (< 200); Glucose 79 mg/dL (70-105); HDL Cholesterol 32 mg/dL (40-59); LDL Cholesterol,Calculated 51 mg/dL (< 100); Osmolality,Calculated 289 (280-300); Potassium 4.2 mEq/L (3.5-5.1); Sodium 140 mEq/L (136-145); Triglycerides 246 mg/dL (< 150); eGFR For African Americans > 60 (> 60); eGFR For Non-African Americans > 60 (> 60)
[2021-10-20] MEDS ORDERED: Regadenoson 0.4 MG/5 ML SYRINGE IVP ONE (07:20)
[2021-10-20 08:14] LABS: Bilirubin,Urine Negative (Negative); Blood,Urine Negative (Negative); Clarity,Urine Clear (Clear); Color,Urine Light-Yellow (Yellow); Glucose,Urine (UA) Normal (Normal); Ketones,Urine Negative (Negative); Leukocyte Esterase,Urine Negative (Negative); Nitrite,Urine Negative (Negative); PH,Urine 6.5 pH Units (5.0-8.0); Protein,Urine 70 mg/dL (Neg-Trace); Specific Gravity,Urine 1.028 (1.010-1.025); Urobilinogen,Urine Normal (Normal)
[2021-10-20 08:28] LABS: Sperm,Urine Present per hpf (None Seen)
[2021-10-20 08:29] LABS: Bacteria,Urine Few per hpf (None-Few); Squamous Epithelial Cell,Urine Few per hpf (None-Few); WBC,Urine 0-3 per hpf (0-3)
[2021-10-20] MEDS: Aspirin Enteric Coated 81 MG Tablet PO SCH (11:22)
[2021-10-20] MEDS: Gabapentin 400 MG CAPSULE PO PRN ×2 (11:26→21:33)
[2021-10-20] MEDS: Famotidine 20 MG TABLET PO SCH ×2 (11:39→15:23)
[2021-10-20] MEDS ORDERED: NIFEdipine Immed Rel 10 MG CAPSULE PO ONE (20:11)
[2021-10-20] MEDS: carvediloL 6.25 MG TABLET PO SCH (21:20)
[2021-10-20] MEDS: Acetaminophen 325 MG TABLET PO PRN (21:28)
[2021-10-21] MEDS: *HR* Heparin 5,000 UNIT/ML VIAL SQ SCH ×3 (05:44→21:33)
[2021-10-21] MEDS: Aspirin Enteric Coated 81 MG Tablet PO SCH (08:14)
[2021-10-21] MEDS: carvediloL 6.25 MG TABLET PO SCH (08:15)
[2021-10-21] MEDS: Famotidine 20 MG TABLET PO SCH ×2 (08:15→15:49)
[2021-10-21] MEDS: Acetaminophen 325 MG TABLET PO PRN (08:21)
[2021-10-21 09:51] LABS: Hematocrit 46.7 % (37.5-50.1); Hemoglobin 15.5 g/dL (12.9-16.9); Mean Corpuscular HGB Conc 33.2 g/dL (31.6-35.5); Mean Corpuscular Hemoglobin 29.6 pg (28.0-33.3); Mean Corpuscular Volume 89.3 fL (83.0-100.0); Mean Platelet Volume 9.3 fL (9.4-12.4); Platelet Count 302 K/mcL (140-400); Red Blood Count 5.23 M/mcL (4.19-5.50); Red Cell Distribution Width 13.1 % (11.5-14.5); White Blood Count 8.3 K/mcL (4.3-11.1)
[2021-10-21 10:09] LABS: BUN/Creatinine Ratio 14 (6-26); Blood Urea Nitrogen 14 mg/dL (6-20); Calcium 8.1 mg/dL (8.6-10.3); Carbon Dioxide 25 mEq/L (23-29); Chloride 108 mEq/L (98-107); Glucose 113 mg/dL (70-105); Osmolality,Calculated 289 (280-300); Potassium 4.3 mEq/L (3.5-5.1); Sodium 139 mEq/L (136-145); eGFR For African Americans > 60 (> 60); eGFR For Non-African Americans > 60 (> 60)
[2021-10-21] MEDS: carvediloL 25 MG TABLET PO SCH (16:19)
[2021-10-22] MEDS: *HR* Heparin 5,000 UNIT/ML VIAL SQ SCH ×2 (05:25→13:54)
[2021-10-22] MEDS: Famotidine 20 MG TABLET PO SCH ×2 (07:38→17:28)
[2021-10-22] MEDS: carvediloL 25 MG TABLET PO SCH ×2 (07:38→17:28)
[2021-10-22] MEDS: Aspirin Enteric Coated 81 MG Tablet PO SCH (07:38)
[2021-10-22] MEDS ORDERED: 0.9 % Sodium Chloride 1,000 ML ONE (14:39)
[2021-10-22] MEDS ORDERED: Iopamidol - 370 200 ML INFUS..BTL ONE (14:40)
[2021-10-22] MEDS ORDERED: Heparin 1,000 UNITS/500 mL 500 ML ONE (14:40)
[2021-10-22] MEDS ORDERED: Nitroglycerin 1,000 MCG/5 ML VIAL IV ONE (14:40)
[2021-10-22] MEDS ORDERED: *HR* Heparin 10,000 UNIT/10 ML VIAL ONE (14:40)
[2021-10-22] MEDS ORDERED: *HR* FentaNYL (PF) 100 MCG/2 ML VIAL ONE (14:49)
[2021-10-22] MEDS ORDERED: *HR* Midazolam HCl 2 MG/2 ML VIAL ONE (14:49)
[2021-10-22 17:29] VITALS: O2SAT 98
[2021-10-22 18:25] VITALS: BP 137/93; PULSE 71; TEMP 97.7
== END 2021-10-22 18:35 | disposition home or self-care (01) ==
LOC: EMEROOARM 16:40 → 3BNU 16:40 → SUATTDRO 18:12 → 3BNU 18:55
PROVIDERS: ADMIT Student in an Organized Health Care Education/Training Program; ATTEND Nurse Practitioner